=== PATIENT | female | born 1980 | race Caucasian/White ===

== ENCOUNTER 2018-12-18 07:52 | Day surgery (SDC) | payer MEDICAID ==
[~2018-12-18 07:52] MED LIST: Lactated Ringers 1,000 ML IV SCH; Sodium Chloride 0.9% 10 ML Syringe FLUSH PRN
[2018-12-18] MEDS: Lactated Ringers 1,000 ML IV SCH (08:54)
--- NOTE | 2018-12-18 09:56 | PCM.PN ---
- General Info Date of Service: 12/18/18 - Review of Systems Systems Review Comment:: 38-year-old female here for cholecystectomy. She has a history of symptomatic cholelithiasis. She is medically stable to proceed today. Her recent history and physical is reviewed and there is no significant changes noted today. I have discussed the proposed cholecystectomy with the patient. We have carefully reviewed the indications options and risks of the procedure. These include but are not limited to bleeding infection organ injury and possible need to convert to an open procedure. She agrees to proceed. - Patient Data Vitals - Most Recent: Last Vital Signs Temp 97.8 F 12/18/18 07:00 Pulse 81 12/18/18 07:00 Resp 14 12/18/18 07:00 BP 115/80 12/18/18 07:00 Pulse Ox 96 12/18/18 07:00 Weight - Most Recent: 135.171 kg Lab Results Last 24 Hours: Laboratory Results - last 24 hr 12/18/18 Range/Units 08:10 Urine HCG, Qual Negative (NEGATIVE) Med Orders - Current: Current Medications Lactated Ringer's (Ringers, Lactated) 1,000 mls @ 50 mls/hr IV ASDIRECTED [facility] Last Admin: 12/18/18 08:54 Dose: 50 mls/hr Sodium Chloride (Saline Flush) 10 ml FLUSH Q8HR PRN PRN Reason: keep vein open Discontinued Medications Lactated Ringer's (Ringers, Lactated) 1,000 mls @ 50 mls/hr IV ASDIRECTED [facility] - Problem List Review Problem List Initiated/Reviewed/Updated: Yes - My Orders Last 24 Hours: My Active Orders 12/18/18 07:00 Vital Signs [RC] PER UNIT ROUTINE Sodium Chloride 0.9% [Saline Flush] 10 ml FLUSH Q8HR PRN Peripheral IV Insertion Adult [OM.PC] Routine 12/18/18 08:00 Lactated Ringers [Ringers, Lactated] 1,000 ml IV ASDIRECTED 12/18/18 08:30 Patient to Empty Bladder [RC] ASDIRECTED Sequential Compression Device [OM.PC] Routine 12/18/18 09:00 Verify Patient Consent Obtain [RC] ASDIRECTED 12/18/18 Breakfast Nothing Per Oral Diet [DIET] - Assessment Assessment:: Symptomatic cholelithiasis - Plan Plan:: Cholecystectomy
[2018-12-18] MEDS ORDERED: fentaNYL 250 MCG/5 ML SDV ONE (10:11)
[2018-12-18] MEDS ORDERED: Midazolam 1 MG/ML 2 ML SDV ONE (10:11)
[2018-12-18] MEDS ORDERED: ceFAZolin 1 GM Vial ONE ×2 (10:11→11:39)
[2018-12-18] MEDS ORDERED: Lactated Ringers 1,000 ML ONE ×2 (10:11→11:22)
[2018-12-18] MEDS ORDERED: Propofol 200 MG/20 ML SDV ONE (10:11)
[2018-12-18] MEDS ORDERED: Dexamethasone 4 MG/ML SDV ONE (10:11)
[2018-12-18] MEDS ORDERED: Bupivacaine 0.5%/EPINEPHrine 1:200,000 30 ML SDV ONE (10:12)
[2018-12-18] MEDS ORDERED: Bacitracin/Neomycin/Polymyxin B Oint 0.9 GM U/D Packet ONE (10:13)
[2018-12-18] MEDS ORDERED: fentaNYL 250 MCG/5 ML SDV IV ONE (10:15)
[2018-12-18] MEDS ORDERED: Midazolam 1 MG/ML 2 ML SDV IV ONE (10:15)
[2018-12-18] MEDS ORDERED: ceFAZolin 1 GM Vial IV ONE (10:15)
[2018-12-18] MEDS ORDERED: Ondansetron 4 MG/2 ML SDV IV ONE (10:15)
[2018-12-18] MEDS ORDERED: Succinylcholine 200 MG/10 ML MDV IV ONE (10:15)
[2018-12-18] MEDS ORDERED: Propofol 200 MG/20 ML SDV IV ONE (10:15)
[2018-12-18] MEDS ORDERED: Dexamethasone 4 MG/ML SDV IV ONE (10:15)
[2018-12-18] MEDS ORDERED: Rocuronium 50 MG/5 ML Vial IV ONE (10:15)
[2018-12-18] MEDS: Bacitracin/Neomycin/Polymyxin B Oint 0.9 GM U/D Packet TOP ONE (11:08)
[2018-12-18] MEDS: Bupivacaine 0.5%/EPINEPHrine 1:200,000 30 ML SDV INFILT ONE ×2 (11:08)
[2018-12-18] MEDS ORDERED: Ondansetron 4 MG/2 ML SDV IVPUSH PRN (12:21)
[2018-12-18] MEDS ORDERED: Morphine 2 MG/ML Syringe IVPUSH PRN (12:22)
[2018-12-18] MEDS ORDERED: Albuterol 0.083% 2.5 MG/3 ML Neb Soln NEB PRN (12:22)
[2018-12-18] MEDS ORDERED: fentaNYL 100 MCG/2 ML SDV IVPUSH PRN (12:22)
--- NOTE | 2018-12-18 12:49 | PCM.OPNOTE ---
- General Post-Op/Procedure Note Date of Surgery/Procedure: 12/18/18 Operative Procedure(s): Laparoscopic Cholecystectomy Findings: Chronically inflamed gallbladder with multiple stones Pre Op Diagnosis: Symptomatic Cholelithiasis Post-Op Diagnosis: Same Anesthesia Technique: General ET Tube Primary Surgeon: Fan Whitehead Pathology: Gallbladder Output, Urine Amount: 0 EBL in mLs: 20 Complications: None Condition: Good
[2018-12-18] MEDS: Morphine 4 MG/ML Syringe IVPUSH PRN (12:54)
--- NOTE | 2018-12-18 19:08 | OR ---
DATE OF SURGERY: 12/18/2018 SURGEON: Fan Whitheead MD REFERRING PHYSICIAN: Alexandra Martinez MD PREOPERATIVE DIAGNOSIS: Symptomatic cholelithiasis. POSTOPERATIVE DIAGNOSIS: Symptomatic cholelithiasis. OPERATION PERFORMED: Laparoscopic cholecystectomy. INDICATIONS FOR SURGERY: This 38-year-old female has been having symptoms of postprandial upper abdominal pain and bloating. Workup has identified multiple gallstones, and she comes for cholecystectomy. FINDINGS: The gallbladder contains multiple stones. Does show some evidence of chronic inflammation. The adjacent liver appears normal. No other intraabdominal abnormalities were seen. DESCRIPTION OF PROCEDURE: The patient was taken to the operating room. She was given general endotracheal anesthesia. Her abdomen was sterilely prepped and draped. A supraumbilical stab wound incision was made. Through this, a Veress needle was inserted and pneumoperitoneum via this needle to a pressure of 15 mmHg is achieved with carbon dioxide. The Veress needle was then replaced with a 12 mm trocar into which the 5 mm 0 degree laparoscopic camera was inserted. Under direct visualization, 5 mm trocars were placed in the subxiphoid midline and in 2 areas of the right abdomen. All trocar sites were infiltrated with Marcaine prior to incision. Intraabdominal inspection was carried out and attention was turned to the gallbladder. It was secured with grasping forceps placed through the lateral trocars and retracted superiorly and anteriorly. Fatty tissue overlying the lower portion of the gallbladder and cystic duct was carefully cleared. The triangle of Calot was explored and 2 major branches of the cystic artery were identified, isolated, doubly clipped and divided. Two other minor branches were also controlled with clips and divided. With careful persistent dissection, the triangle of Calot was cleared. The cystic duct was identified. It was found to be dilated but otherwise appeared normal. The cystic duct was milked and it was doubly clipped and partially divided, then an additional reinforcing 3rd clip was placed, all close to the gallbladder to completely occlude the cystic duct and great care was used to avoid any injury or compromise to the common bile duct. The cystic duct was divided right at its junction with the gallbladder. The gallbladder was then dissected free from the undersurface of the liver using the hook cautery device. Once it was freed, it was placed into an Endo retrieval bag and then extracted through the umbilical trocar site in a piecemeal fashion by using multiple passes to remove small stone fragments and fragments of the gallbladder until it had decreased in size enough to be withdrawn through the fascial opening. There was no stone spillage intraabdominally. Careful inspection of the gallbladder bed and the operative region was carried out. The area was irrigated and no sign of bleeding or any other complication was noted. The trocars were removed under direct visualization, and the pneumoperitoneum was evacuated. The fascia of the umbilical trocar site was closed with a [id number] 0 Vicryl suture. Wounds were irrigated with Betadine and saline solution. Skin incisions were approximated with interrupted 4-0 Vicryl in a subcuticular stitch. Steri-Strips and benzoin were applied. Antibiotic ointment and sterile dressings were placed. The patient was then awakened, extubated, and taken from the operating room in satisfactory condition. ESTIMATED BLOOD LOSS: 20 mL. COMPLICATIONS: None. PROGNOSIS: Good. /[id number]/MODL
== END 2018-12-18 16:05 | disposition home or self-care (01) ==
LOC: KA.SDS 07:52
PROVIDERS: ATTEND Surgery
DX: K80.10 Calculus of gallbladder with chronic cholecystitis without obstruction (principal); E66.9 Obesity, unspecified; Z68.42 Body mass index [BMI] 45.0-49.9, adult; F17.200 Nicotine dependence, unspecified, uncomplicated; E55.9 Vitamin D deficiency, unspecified; Z79.899 Other long term (current) drug therapy; Z88.8 Allergy status to other drugs, medicaments and biological substances
CPT/HCPCS: 81025; J0330; J0690; J1100; J2250; J2270; J2405; J2704; J3010; J3490; J7120

== ENCOUNTER 2019-04-18 16:52 | Emergency (ER) | payer MEDICAID ==
[2019-04-18] MEDS ORDERED: Sodium Chloride 0.9% 10 ML Syringe FLUSH PRN (17:00)
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
[2019-04-18 17:44] LABS: ANION GAP 13.4 mmol/L (5-15); CHLORIDE,CL 99 mmol/L (98-115); SODIUM,NA 136 mmol/L (136-145)
--- NOTE | 2019-04-18 17:54 | CR ---
[id number] RAD/RAD Chest PA And Lateral EXAM: FRONTAL AND LATERAL CHEST INDICATION: Chest pain. COMPARISON: December 12, 2018. DISCUSSION: Partially obscured right heart border, unchanged. No definite acute infiltrates. Borderline heart size without evidence of congestive heart failure. IMPRESSION: 1. No acute findings. Vitor Henriquez MD 04/18/19 [id number] Thank you for allowing us to participate in the care of your patient.
== END 2019-04-18 18:08 | disposition home or self-care (01) ==
LOC: KA.ED 16:52
DX: R07.89 Other chest pain (principal); E66.9 Obesity, unspecified; Z88.8 Allergy status to other drugs, medicaments and biological substances; Z90.49 Acquired absence of other specified parts of digestive tract
CPT/HCPCS: 71046; 80053; 82550; 82553; 84484; 84703; 85025; 85379; 93005; 99285-25

== ENCOUNTER 2019-05-31 07:45 | Emergency (ER) | payer MEDICAID ==
[2019-05-31] MEDS ORDERED: methylPREDNISolone Sodium Succinate 125 MG/2 ML SDV IM ONE (08:24)
[2019-05-31] MEDS ORDERED: diphenhydrAMINE 50 MG/ML SDV IM ONE (08:26)
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
== END 2019-05-31 08:55 | disposition home or self-care (01) ==
LOC: KA.ED 07:45
DX: S40.862A Insect bite (nonvenomous) of left upper arm, initial encounter (principal); L08.89 Other specified local infections of the skin and subcutaneous tissue; E78.00 Pure hypercholesterolemia, unspecified; Z79.899 Other long term (current) drug therapy; Z88.8 Allergy status to other drugs, medicaments and biological substances; W57.XXXA Bitten or stung by nonvenomous insect and other nonvenomous arthropods, initial encounter
CPT/HCPCS: 96372; 99282; A9270; J1200; J2930

== ENCOUNTER 2019-05-31 23:42 | Observation (INO) | payer MEDICAID ==
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
[2019-06-01] MEDS ORDERED: Sodium Chloride 0.9% 10 ML Syringe FLUSH PRN ×2 (00:40→01:48)
[2019-06-01] MEDS ORDERED: Aspirin 81 MG Tab.Chew PO ONE (00:59)
[2019-06-01] MEDS ORDERED: Aspirin 81 MG Tab.Chew ONE (00:59)
[2019-06-01] MEDS ORDERED: Sulfamethoxazole/Trimethoprim 800-160 MG Tab PO ONE ×2 (01:21→12:19)
[2019-06-01 01:44] LABS: CHLORIDE,CL 105 mmol/L (98-115); SODIUM,NA 139 mmol/L (136-145)
[2019-06-01] MEDS ORDERED: Nitroglycerin 2% Oint 1 GM UD Packet TOP PRN (02:01)
[2019-06-01 06:59] LABS: HEMOGLOBIN A1C 5.2 % (4.3-5.7)
[2019-06-01 07:26] LABS: ANION GAP 13.1 mmol/L (5-15); CHLORIDE,CL 106 mmol/L (98-115); SODIUM,NA 140 mmol/L (136-145)
[2019-06-01] MEDS ORDERED: EPINEPHrine 1:10,000 1 MG/10 ML Syringe IVPUSH PRN (07:57)
[2019-06-01] MEDS ORDERED: Lidocaine 2% 100 MG/5 ML Syringe IVPUSH PRN (07:57)
[2019-06-01] MEDS ORDERED: Atropine 0.1 MG/ML 10 ML Syringe IVPUSH PRN (07:57)
[2019-06-01] MEDS ORDERED: Sulfamethoxazole/Trimethoprim 800-160 MG Tab PO SCH (09:00)
[2019-06-01] MEDS ORDERED: Rosuvastatin 5 MG Tab PO SCH (11:00)
[2019-06-01] MEDS ORDERED: Cholecalciferol (Vitamin D3) 25 MCG Tab PO SCH (11:00)
--- NOTE | 2019-06-01 12:12 | PCM.DCSUM1 ---
Discharge Summary - Hospital Course Free Text/Narrative:: 1. palpitations 2. cellulitis to left upper arm 3. abnormal stress test 4. leukocytosis HPI Initial Comments: 39 YO WF presents to ER complaining of mild palpitations (feels like it skips a beat) while trying to sleep last night. Pt has been having previous episodes of chest pain, approximately 4 episodes in the last 2 weeks. Pt was seen by PCP who ordered 2D echo and NM stress test which revealed a perfusion defect and pt has an appointment scheduled with cardiology at [facility] for 06/11/2019. Pt denies any episodes of chest pain or shortness of breath today. Pt denies nausea /vomiting, no dizziness or lightheadedness, and no diaphoresis. Pt denies any fever/chills. Pt was started on crestor for elevated LDL and triglycerides, but is otherwise taking no medications. Diagnosis: Stroke: No Modified [place] Scale: No Symptoms at All Modified Rebecca Scale Score: 0 - Discharge Data Discharge Date: 06/01/19 Discharge Disposition: Home, Self-Care 01 Condition: Good - Discharge Diagnosis/Problem(s) (1) Abnormal stress test Status: Acute Current Visit: No (2) Cellulitis SNOMED Code(s): 853985369 ICD Code: L03.90 - CELLULITIS, UNSPECIFIED Status: Acute Current Visit: No Qualifiers: Site of cellulitis: extremity Site of cellulitis of extremity: upper extremity Laterality: left Qualified Code(s): L03.114 - Cellulitis of left upper limb (3) Insect bite of left upper arm with local reaction SNOMED Code(s): 190941677 ICD Code: S40.862A - INSECT BITE (NONVENOMOUS) OF LEFT UPPER ARM, INIT ENCNTR ; W57.XXXA - BIT/STUNG BY NONVENOM INSECT & OTH NONVENOM ARTHROPODS, INIT Status: Acute Current Visit: No Qualifiers: Encounter type: initial encounter Qualified Code(s): S40.862A - Insect bite (nonvenomous) of left upper arm, initial encounter; W57.XXXA - Bitten or stung by nonvenomous insect and other nonvenomous arthropods, initial encounter (4) Palpitation SNOMED Code(s): 58260715 ICD Code: R00.2 - PALPITATIONS Status: Acute Current Visit: No - Patient Summary/Data Consults: Discussed case with cardiology- Dr Bañuelos who felt this patient to follow up with cardiology as scheduled 06/11/2019 for diagnostic cardiac cath. Pt has had 3 negative trop I and no arrhythmias while on telemetry in hospital. Pt was instructed to take ASA 325mg PO QD Recommended Follow-up Testing/Procedures: 1. needs diagnostic cardiac cath and follow up with cardiology scheduled for 2. follow up in clinic 06/03/2019 for repeat WBC's and recheck of left upper arm cellulitis 3. septra DS 1 tab BID x 10 days 4. return to ER for fever/chest pain or worsening symptoms Hospital Course: Pt was admitted for telemetry and serial trop I. Pt had negative trop I x 3 and no arrhythmias on telemetry. Pt was started on septra DS for suspected upper arm cellulitis from a bug bite. Pt reports improved swelling, decreased redness , no fever and overall feels better and would prefer to go home and follow up in clinic for repeat labs. It was discussed with patient that her elevated WBC' s maybe related to solumedrol injection from earlier in the day. It was suggested she stay 1 more day in hospital to trend her leukocytosis, but in light of the fact that patient is clinically improved and would prefer outpatient lab draw, pt was discharged home on Septra DS BID x 10 days. Pt instructed to return for fever, worsening swelling/pain/redness at bite site. - Patient Instructions Diet: Heart Healthy Diet Activity: As Tolerated Driving: May Drive Today Showering/Bathing: May Shower Notify Provider of: Fever, Increased Pain, Swelling and Redness - Discharge Plan Home Medications: Home Meds Cholecalciferol (Vitamin D3) [Vitamin D3] 4,000 unit PO BID 10/30/18 [History] Rosuvastatin [Crestor] 5 mg PO DAILY 05/31/19 [History] Oxygen Therapy Mode: Room Air Forms: ED Department Discharge Referrals: Alexandra Quezada MD [Primary Care Provider] - - Discharge Summary/Plan Comment DC Time >30 min.: Yes - Patient Data Vitals - Most Recent: Last Vital Signs Temp 36.8 C 06/01/19 10:56 Pulse 78 06/01/19 10:56 Resp 18 06/01/19 10:56 BP 109/71 06/01/19 10:56 Pulse Ox 97 06/01/19 10:56 Weight - Most Recent: 136.645 kg I&O - Last 24 hours: Intake & Output 05/31/19 06/01/19 06/01/19 22:59 06:59 14:59 Intake Total 280 Output Total 400 Balance -120 Lab Results - Last 24 hrs: Laboratory Results - last 24 hr 06/01/19 06/01/19 06/01/19 Range/Units 01:00 01:00 06:10 WBC 17.92 H 19.05 H (5.00-10.00) 10^3/uL RBC 4.57 4.27 (3.80-5.50) 10^6/uL Hgb 13.6 12.8 (12.0-16.0) g/dL Hct 40.5 38.5 (37.0-47.0) % MCV 88.6 90.2 (82.0-92.0) fL MCH 29.8 30.0 (27.0-31.0) pg MCHC 33.6 33.2 (32.0-36.0) g/dL RDW 13.9 13.9 (11.5-14.5) % Plt Count 237 233 (150-400) 10^3/uL MPV 11.3 H 10.7 H (7.4-10.4) fL Immature Gran % (Auto) 0.3 0.4 (0.0-5.0) % Neut % (Auto) 87.0 H 83.6 H (50.0-70.0) % Lymph % (Auto) 9.3 L 11.7 L (20.0-40.0) % [place] % (Auto) 3.2 4.0 (2.0-8.0) % Eos % (Auto) 0.0 L 0.1 L (1.0-3.0) % Baso % (Auto) 0.2 0.2 (0.0-1.0) % Immature Gran # (Auto) 0.06 0.07 (0.00-0.50) 10^3/uL Neut # (Auto) 15.59 H 15.94 H (2.50-7.00) 10^3/uL Lymph # (Auto) 1.66 2.23 (1.00-4.00) 10^3/uL [place] # (Auto) 0.58 0.77 (0.10-0.80) 10^3/uL Eos # (Auto) 0.00 L 0.01 L (0.10-0.30) 10^3/uL Baso # (Auto) 0.03 0.03 (0.00-0.10) 10^3/uL Sodium 139 (136-145) mmol/L Potassium 4.3 (3.3-5.3) mmol/L Chloride 105 (98-115) mmol/L Carbon Dioxide 23.3 (21.0-32.0) mmol/L Anion Gap 15.0 (5-15) mmol/L BUN 16 (6-25) mg/dL Creatinine 0.83 (0.51-1.17) mg/dL Est Cr Clr Drug Dosing 85.02 mL/min Estimated GFR (MDRD) > 60 mL/min Glucose 210 H (75 - 99) mg/dL Hemoglobin A1c (4.3-5.7) % Calcium 9.6 (8.7-10.3) mg/dL Total Bilirubin 0.1 L (0.2-1.0) mg/dL AST 12 L (15-37) U/L ALT 22 (12-78) U/L Alkaline Phosphatase 93 (46-116) IU/L Creatine Kinase 142 (26-276) U/L CK-MB (CK-2) 0.90 (0.00-4.30) ng/mL Troponin I 0.04 (0.00-0.070) ng/mL Total Protein 7.5 (6.4-8.2) g/dL Albumin 3.25 (3.00-4.80) g/dL 06/01/19 06/01/19 Range/Units 06:10 10:06 WBC (5.00-10.00) 10^3/uL RBC (3.80-5.50) 10^6/uL Hgb (12.0-16.0) g/dL Hct (37.0-47.0) % MCV (82.0-92.0) fL MCH (27.0-31.0) pg MCHC (32.0-36.0) g/dL RDW (11.5-14.5) % Plt Count (150-400) 10^3/uL MPV (7.4-10.4) fL Immature Gran % (Auto) (0.0-5.0) % Neut % (Auto) (50.0-70.0) % Lymph % (Auto) (20.0-40.0) % [place] % (Auto) (2.0-8.0) % Eos % (Auto) (1.0-3.0) % Baso % (Auto) (0.0-1.0) % Immature Gran # (Auto) (0.00-0.50) 10^3/uL Neut # (Auto) (2.50-7.00) 10^3/uL Lymph # (Auto) (1.00-4.00) 10^3/uL [place] # (Auto) (0.10-0.80) 10^3/uL Eos # (Auto) (0.10-0.30) 10^3/uL Baso # (Auto) (0.00-0.10) 10^3/uL Sodium 140 (136-145) mmol/L Potassium 4.4 (3.3-5.3) mmol/L Chloride 106 (98-115) mmol/L Carbon Dioxide 25.3 (21.0-32.0) mmol/L Anion Gap 13.1 (5-15) mmol/L BUN 15 (6-25) mg/dL Creatinine 0.80 (0.51-1.17) mg/dL Est Cr Clr Drug Dosing 88.20 mL/min Estimated GFR (MDRD) > 60 mL/min Glucose 140 H (75 - 99) mg/dL Hemoglobin A1c 5.2 (4.3-5.7) % Calcium 9.4 (8.7-10.3) mg/dL Total Bilirubin (0.2-1.0) mg/dL AST (15-37) U/L ALT (12-78) U/L Alkaline Phosphatase (46-116) IU/L Creatine Kinase (26-276) U/L CK-MB (CK-2) (0.00-4.30) ng/mL Troponin I 0.04 0.05 (0.00-0.070) ng/mL Total Protein (6.4-8.2) g/dL Albumin (3.00-4.80) g/dL Med Orders - Current: Current Medications Atropine Sulfate (Atropine 0.1 Mg/Ml) 0 mg IVPUSH ASDIRECTED PRN PRN Reason: Heart. Cholecalciferol (Vitamin D3) 100 mcg PO DAILY [facility] Last Admin: 06/01/19 11:13 Dose: 100 mcg Epinephrine HCl (Epinephrine 1:10,000) 1 mg IVPUSH ASDIRECTED PRN PRN Reason: Heart. Lidocaine HCl (Xylocaine 2%) 0 mg IVPUSH ASDIRECTED PRN PRN Reason: Heart. Nitroglycerin (Nitro-Bid 2%) 1 gm TOP Q6H PRN PRN Reason: Chest Pain Rosuvastatin Calcium (Crestor) 5 mg PO DAILY [facility] Last Admin: 06/01/19 11:13 Dose: 5 mg Sodium Chloride (Saline Flush) 10 ml FLUSH Q8HR PRN PRN Reason: keep vein open Last Admin: 06/01/19 05:58 Dose: 10 ml Trimethoprim/Sulfamethoxazole (Septra Ds) 1 tab PO BID [facility] Last Admin: 06/01/19 08:25 Dose: 1 tab Discontinued Medications Aspirin (Aspirin) 324 mg PO ONETIME ONE Stop: 06/01/19 01:00 Last Admin: 06/01/19 01:07 Dose: 324 mg Aspirin (Aspirin) Confirm Administered Dose 324 mg .ROUTE .STK-MED ONE Stop: 06/01/19 01:00 Last Admin: 06/01/19 01:08 Dose: Not Given Sodium Chloride (Saline Flush) 10 ml FLUSH Q8HR PRN PRN Reason: keep vein open Trimethoprim/Sulfamethoxazole (Septra Ds) 1 tab PO ONETIME ONE Stop: 06/01/19 01:22 Last Admin: 06/01/19 01:35 Dose: 1 tab
--- NOTE | 2019-06-03 14:01 | CR ---
[id number] RAD/RAD Chest PA And Lateral EXAM: RAD Chest PA And Lateral INDICATION: PALPITATIONS COMPARISON: April 18, 2019. DISCUSSION: Cardiomediastinal silhouette is normal in size and contour. No infiltrate, effusion, pneumothorax, or edema. IMPRESSION: No acute cardiopulmonary abnormality. Maciel Garcia DO 06/03/19 2531 Thank you for allowing us to participate in the care of your patient.
== END 2019-06-01 12:39 | disposition home or self-care (01) ==
LOC: SUPCPDRO 23:42 → KA.ED 23:42 → KA.MS 06-01 01:48 → UNDOADMOB 06-01 02:12 → KA.MS 06-01 02:12 → UNDODISOB 06-01 12:39
PROVIDERS: ADMIT Physician Assistant Medical; ATTEND Internal Medicine
DX: R00.2 Palpitations (principal); R94.39 Abnormal result of other cardiovascular function study; L03.114 Cellulitis of left upper limb; E78.00 Pure hypercholesterolemia, unspecified; E66.9 Obesity, unspecified; E55.9 Vitamin D deficiency, unspecified; S40.862A Insect bite (nonvenomous) of left upper arm, initial encounter; W57.XXXA Bitten or stung by nonvenomous insect and other nonvenomous arthropods, initial encounter; Z79.899 Other long term (current) drug therapy; Z88.8 Allergy status to other drugs, medicaments and biological substances; Z68.42 Body mass index [BMI] 45.0-49.9, adult
CPT/HCPCS: 36415; 71046; 80048; 80053; 82550; 82553; 83036; 84484; 85025; 93005; 99285; A9270; G0378

== ENCOUNTER 2020-06-04 20:54 | Emergency (ER) | payer MEDICAID ==
[2020-06-04] MEDS ORDERED: Sodium Chloride 0.9% 10 ML Syringe FLUSH PRN (21:03)
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
[2020-06-04 21:59] LABS: CHLORIDE,CL 102 mmol/L (98-115); SODIUM,NA 137 mmol/L (136-145)
[2020-06-04] MEDS: Ketorolac 30 MG/ML SDV IVPUSH ONE (22:04)
--- NOTE | 2020-06-05 07:35 | CR ---
[id number] RAD/RAD Chest PA And Lateral EXAM: RAD Chest PA And Lateral CLINICAL DATA: CHEST PAIN COMPARISON: CORRELATION IS MADE WITH JUNE 01, 2019 FINDINGS: The lungs are clear. The cardiomediastinal contour is normal. The regional bones and soft tissues are unremarkable. IMPRESSION: NO ACUTE PROCESS. Zay Tapia MD 06/05/20 0733 Thank you for allowing us to participate in the care of your patient.
== END 2020-06-04 22:19 | disposition home or self-care (01) ==
LOC: KA.ED 20:54
DX: R07.89 Other chest pain (principal); E78.00 Pure hypercholesterolemia, unspecified; E66.9 Obesity, unspecified; Z68.43 Body mass index [BMI] 50.0-59.9, adult
CPT/HCPCS: 36415; 71046; 80053; 82550; 82553; 84484; 84703; 85025; 93005; 96374; 99284; 99285-25; J1885

== ENCOUNTER 2020-12-23 19:00 | Emergency (ER) | payer MEDICAID ==
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
[2020-12-23] MEDS: Ketorolac 10 MG Tab PO ONE (19:27)
== END 2020-12-23 19:38 | disposition home or self-care (01) ==
LOC: KA.ED 19:00 → SUPCPDRO 19:00 → KA.ED 19:38
DX: S39.012A Strain of muscle, fascia and tendon of lower back, initial encounter (principal); M53.3 Sacrococcygeal disorders, not elsewhere classified; E66.9 Obesity, unspecified; E78.00 Pure hypercholesterolemia, unspecified; Z68.43 Body mass index [BMI] 50.0-59.9, adult; Z88.8 Allergy status to other drugs, medicaments and biological substances; Z79.899 Other long term (current) drug therapy; W00.0XXA Fall on same level due to ice and snow, initial encounter
CPT/HCPCS: 99283; 99284; A9270-GY

== ENCOUNTER 2021-12-07 13:50 | Emergency (ER) | payer MEDICAID | END 2021-12-07 16:00 | disposition home or self-care (01) | LOC: KA.ED 13:50 | DX: S93.411A Sprain of calcaneofibular ligament of right ankle, initial encounter (principal); E78.00 Pure hypercholesterolemia, unspecified; E66.9 Obesity, unspecified; Z68.30 Body mass index [BMI] 30.0-30.9, adult; Z88.8 Allergy status to other drugs, medicaments and biological substances; W00.9XXA Unspecified fall due to ice and snow, initial encounter; X50.1XXA Overexertion from prolonged static or awkward postures, initial encounter | CPT/HCPCS: 73600-RT; 73630-RT; 99283; 99283-25 ==

== ENCOUNTER 2022-08-15 13:34 | Emergency (ER) | payer MEDICAID ==
[2022-08-15] MEDS ORDERED: Ketorolac 60 MG/2 ML SDV IM ONE (14:08)
== END 2022-08-15 15:00 | disposition home or self-care (01) ==
LOC: KA.ED 13:34
DX: M25.551 Pain in right hip (principal); M53.3 Sacrococcygeal disorders, not elsewhere classified; E78.00 Pure hypercholesterolemia, unspecified; E66.9 Obesity, unspecified; M19.90 Unspecified osteoarthritis, unspecified site; Z68.42 Body mass index [BMI] 45.0-49.9, adult; Z88.8 Allergy status to other drugs, medicaments and biological substances; Z79.899 Other long term (current) drug therapy
CPT/HCPCS: 96372; 99283; 99284; J1885

== ENCOUNTER 2023-05-09 22:40 | Emergency (ER) | payer MEDICAID ==
[2023-05-09] MEDS ORDERED: Acetaminophen/HYDROcodone 325-10 MG Tab ONE (22:53)
[2023-05-09] MEDS ORDERED: Acetaminophen/HYDROcodone 325-10 MG Tab PO ONE (22:54)
== END 2023-05-09 23:40 | disposition home or self-care (01) ==
LOC: KA.ED 22:40
DX: M79.672 Pain in left foot (principal); E78.00 Pure hypercholesterolemia, unspecified; E66.9 Obesity, unspecified; Z68.43 Body mass index [BMI] 50.0-59.9, adult; Z88.8 Allergy status to other drugs, medicaments and biological substances; Z79.899 Other long term (current) drug therapy; Z72.0 Tobacco use
CPT/HCPCS: 99283; A9270-GY

== ENCOUNTER 2023-06-23 16:19 | Emergency (ER) | payer MEDICAID ==
[2023-06-23] MEDS ORDERED: Sodium Chloride 0.9% 10 ML Syringe FLUSH PRN (16:25)
[2023-06-23 16:34] LABS: BASOPHILS ABSOLUTE AUTO 0.06 10^3/uL (0.00-0.10); BASOPHILS PERCENT AUTO 0.7 % (0.0-1.0); EOSINOPHILS ABSOLUTE AUTO 0.25 10^3/uL (0.10-0.30); EOSINOPHILS PERCENT AUTO 2.8 % (1.0-3.0); HEMATOCRIT 41.6 % (37.0-47.0); HEMOGLOBIN 13.2 g/dL (12.0-16.0); IMMATURE GRAN ABSOLUTE AUTO 0.03 10^3/uL (0.00-0.50); IMMATURE GRAN PERCENT AUTO 0.3 % (0.0-5.0); LYMPHOCYTES ABSOLUTE AUTO 3.01 10^3/uL (1.00-4.00); LYMPHOCYTES PERCENT AUTO 34.2 % (20.0-40.0); MEAN CORPUSCULAR HEMOGLOBIN 28.1 pg (27.0-31.0); MEAN CORPUSCULAR HGB CONC 31.7 g/dL (32.0-36.0); MEAN CORPUSCULAR VOLUME 88.5 fL (82.0-92.0); MEAN PLATELET VOLUME 11.6 fL (7.4-10.4); MONOCYTES ABSOLUTE AUTO 0.61 10^3/uL (0.10-0.80); MONOCYTES PERCENT AUTO 6.9 % (2.0-8.0); NEUTROPHILS ABSOLUTE AUTO 4.85 10^3/uL (2.50-7.00); NEUTROPHILS PERCENT AUTO 55.1 % (50.0-70.0); PLATELET COUNT,PLT 211 10^3/uL (150-400); RED CELL DISTRIBUTION WIDTH 14.1 % (11.5-14.5); WHITE BLOOD CELL COUNT,WBC 8.81 10^3/uL (5.00-10.00)
[2023-06-23 16:58] LABS: ALANINE AMINOTRANSFERASE,ALT 39 U/L (14-63); ALBUMIN 3.35 g/dL (3.40-5.00); ALKALINE PHOSPHATASE 101 U/L (46-116); ANION GAP 15.4 mmol/L (5-15); ASPARTATE AMNIOTRANSFERASE,AST 19 U/L (15-37); BILIRUBIN TOTAL 0.4 mg/dL (0.2-1.0); BLOOD UREA NITROGEN,BUN 14 mg/dL (7-18); CALCIUM 8.7 mg/dL (8.7-10.3); CARBON DIOXIDE,CO2 25.3 mmol/L (21.0-32.0); CHLORIDE,CL 104 mmol/L (98-107); CREATININE 1.07 mg/dL (0.51-1.17); ESTIMATED GFR 67 mL/min (>=60); GLUCOSE RANDOM 104 mg/dL (70-140); POTASSIUM,K 3.7 mmol/L (3.5-5.1); PROTEIN TOTAL,TP 7.2 g/dL (6.4-8.2); SODIUM,NA 141 mmol/L (136-145)
[2023-06-23 17:06] LABS: INR 0.9 (0.9-1.1); PROTHROMBIN TIME 9.6 SEC (9.2-11.2); PTT,PARTIAL THROMBOPLSTIN TIME 23.1 SEC (22.8-31.4)
[2023-06-23] MEDS: Tenecteplase 50 MG Kit IVPUSH ONE (17:15)
== END 2023-06-23 16:42 ==
LOC: KA.ED 16:19
DX: I63.9 Cerebral infarction, unspecified (principal); E78.00 Pure hypercholesterolemia, unspecified; E66.9 Obesity, unspecified; Z88.8 Allergy status to other drugs, medicaments and biological substances; Z79.899 Other long term (current) drug therapy
CPT/HCPCS: 70450; 80053; 84484; 85025; 85610; 85730; 92977; 93010; 99284; 99285-25; J3101; Q3014

== ENCOUNTER 2024-11-23 11:55 | Emergency (ER) | payer MEDICAID ==
[2024-11-23] MEDS ORDERED: methylPREDNISolone 4 MG Tab 21 Tab/Dosepak PO ONE (11:56)
[2024-11-23] MEDS: methylPREDNISolone Sodium Succinate 125 MG/2 ML SDV IM ONE (14:10)
[2024-11-23] MEDS: Ketorolac 30 MG/ML SDV IM ONE (14:11)
[2024-11-23] MEDS: Non-Formulary Medication 1 Each PO ONE (14:37)
== END 2024-11-23 14:44 | disposition home or self-care (01) ==
LOC: KA.ED 11:55
DX: M54.41 Lumbago with sciatica, right side (principal); G89.29 Other chronic pain; E78.00 Pure hypercholesterolemia, unspecified; E66.9 Obesity, unspecified; Z90.49 Acquired absence of other specified parts of digestive tract; Z88.8 Allergy status to other drugs, medicaments and biological substances; Z79.82 Long term (current) use of aspirin; Z79.899 Other long term (current) drug therapy; Z68.43 Body mass index [BMI] 50.0-59.9, adult
CPT/HCPCS: 73562-RT; 96372; 99283; J1885; J2919; J7509